=== PATIENT | female | born 1965 | race Caucasian/White ===

== ENCOUNTER 2019-11-03 13:16 | Emergency (ER) | payer OTHER ==
[~2019-11-03] VITALS: Ht 172.7 cm; Wt 54.4 kg
[~2019-11-03 13:16] MED LIST: LAMI; VIMPAT
[2019-11-03] MEDS ORDERED: LAMICTAL200 M1 (13:41)
[2019-11-03] MEDS ORDERED: LAMICTAL100 MG (13:42)
[2019-11-03] MEDS ORDERED: FORTAMET500 MG (13:43)
[2019-11-03] MEDS ORDERED: COZAAR25 MG (13:43)
[2019-11-03] MEDS ORDERED: ATORVASTATIN CA10 MG (13:43)
[2019-11-03] MEDS ORDERED: LANTUS SOL100 UNIT/1 (13:43)
[2019-11-03] MEDS ORDERED: GLIPIZIDE XL10 MG (13:44)
== END 2019-11-03 21:45 | disposition home or self-care (01) ==
LOC: ER 13:16
DX: T21.27XA Burn of second degree of female genital region, initial encounter (principal); T24.211A Burn of second degree of right thigh, initial encounter; T24.212A Burn of second degree of left thigh, initial encounter; X12.XXXA Contact with other hot fluids, initial encounter; Y93.89 Activity, other specified; Y92.89 Other specified places as the place of occurrence of the external cause; Y99.8 Other external cause status

== ENCOUNTER 2020-05-26 13:30 | Emergency (ER) | payer OTHER ==
[~2020-05-26] VITALS: Ht 170.2 cm; Wt 55.8 kg
[~2020-05-26 13:30] MED LIST changes: +ATORVASTATIN CA10 MG; +COZAAR25 MG; +FORTAMET500 MG; +GLIPIZIDE XL10 MG; +LAMICTAL100 MG; +LAMICTAL200 M1; +LANTUS SOL100 UNIT/1
== END 2020-05-26 18:39 | disposition home or self-care (01) ==
LOC: ER 13:30
DX: S01.82XA Laceration with foreign body of other part of head, initial encounter (principal); W18.39XA Other fall on same level, initial encounter; Y93.89 Activity, other specified; Y92.098 Other place in other non-institutional residence as the place of occurrence of the external cause; Y99.8 Other external cause status

== ENCOUNTER 2020-06-02 06:34 | Emergency (ER) | payer OTHER ==
[~2020-06-02] VITALS: Ht 170.2 cm; Wt 56.2 kg
== END 2020-06-02 08:05 | disposition home or self-care (01) ==
LOC: ER 06:34
DX: Z48.02 Encounter for removal of sutures (principal)

== ENCOUNTER 2021-04-14 09:13 | Emergency (ER) | payer OTHER ==
[~2021-04-14] VITALS: Ht 170.2 cm; Wt 59.0 kg
== END 2021-04-14 15:11 ==
LOC: ER 09:13
DX: L03.012 Cellulitis of left finger (principal)

== ENCOUNTER 2021-08-20 11:37 | Emergency (ER) | payer OTHER ==
[~2021-08-20] VITALS: Ht 170.2 cm; Wt 59.0 kg
== END 2021-08-20 15:48 | disposition home or self-care (01) ==
LOC: ER 11:37
DX: S00.83XA Contusion of other part of head, initial encounter (principal); X58.XXXA Exposure to other specified factors, initial encounter; Y92.9 Unspecified place or not applicable; E11.9 Type 2 diabetes mellitus without complications; Z79.84 Long term (current) use of oral hypoglycemic drugs; Z88.6 Allergy status to analgesic agent; I10 Essential (primary) hypertension

== ENCOUNTER 2022-04-20 10:46 | Emergency (ER) | payer OTHER ==
[~2022-04-20] VITALS: Ht 170.2 cm; Wt 56.7 kg
[2022-04-20] MEDS ORDERED: JARDIANCE10 MG PO (11:29)
[2022-04-20] MEDS ORDERED: HUMULIN 70100 UNIT/2 (11:29)
== END 2022-04-20 14:40 ==
LOC: ER 10:46
DX: T21.21XA Burn of second degree of chest wall, initial encounter (principal); X10.0XXA Contact with hot drinks, initial encounter; Y93.89 Activity, other specified; Y92.89 Other specified places as the place of occurrence of the external cause; Y99.9 Unspecified external cause status; E11.9 Type 2 diabetes mellitus without complications; Z79.4 Long term (current) use of insulin; Z79.84 Long term (current) use of oral hypoglycemic drugs; I10 Essential (primary) hypertension; Z88.6 Allergy status to analgesic agent

== ENCOUNTER 2022-08-19 10:15 | Emergency (ER) | payer OTHER ==
[~2022-08-19] VITALS: Ht 170.2 cm; Wt 54.0 kg
[~2022-08-19 10:15] MED LIST changes: +HUMULIN 70100 UNIT/2; +JARDIANCE10 MG PO
[2022-08-19] MEDS ORDERED: COZAAR25 MG PO (10:58)
[2022-08-19] MEDS ORDERED: CHILDREN'S ASPI81 MG PO (11:00)
== END 2022-08-19 16:09 | disposition home or self-care (01) ==
LOC: ER 10:15
DX: M54.2 Cervicalgia (principal); S13.9XXA Sprain of joints and ligaments of unspecified parts of neck, initial encounter; W19.XXXA Unspecified fall, initial encounter; Y93.9 Activity, unspecified; Y92.9 Unspecified place or not applicable; Y99.9 Unspecified external cause status

== ENCOUNTER 2023-04-13 10:15 | Emergency (ER) | payer OTHER ==
[~2023-04-13] VITALS: Ht 170.2 cm; Wt 52.2 kg
[~2023-04-13 10:15] MED LIST changes: +CHILDREN'S ASPI81 MG PO; +COZAAR25 MG PO
== END 2023-04-13 14:35 | disposition home or self-care (01) ==
LOC: ER 10:15
DX: S92.524A Nondisplaced fracture of middle phalanx of right lesser toe(s), initial encounter for closed fracture (principal); X58.XXXA Exposure to other specified factors, initial encounter; Y93.89 Activity, other specified; Y92.013 Bedroom of single-family (private) house as the place of occurrence of the external cause; Y99.9 Unspecified external cause status; Z88.8 Allergy status to other drugs, medicaments and biological substances; E11.9 Type 2 diabetes mellitus without complications; Z79.4 Long term (current) use of insulin; I10 Essential (primary) hypertension; R56.9 Unspecified convulsions

== ENCOUNTER 2023-09-11 11:52 | Emergency (ER) | payer OTHER ==
[~2023-09-11] VITALS: Ht 170.2 cm; Wt 52.2 kg
[2023-09-11 13:58] LABS: HEMATOCRIT 35.7 % (36.0-45.00); HEMOGLOBIN 12.5 g/dL (12.0-15.00); MEAN CELL VOLUME 91.5 fL (80.00-100.00); MEAN CORPUSCULAR HEMOGLOBIN 31.9 pg (27.00-32.0); MEAN CORPUSCULAR HGB CONC 34.9 g/dl (32.0-36.0); PLATELET COUNT 389 K/uL (150-450); RED CELL DISTRIBUTION WIDTH 13.4 % (11.5-14.5)
[2023-09-11 14:09] LABS: CALCIUM 9.5 mg/dL (8.5-10.1); CREATININE SERUM 0.73 mg/dL (0.55-1.02); GFR 82.47; POTASSIUM 3.59 mEq/L (3.5-5.1)
== END 2023-09-11 16:34 | disposition home or self-care (01) ==
LOC: ER 11:53
PROVIDERS: Emergency Medicine
DX: G40.909 Epilepsy, unspecified, not intractable, without status epilepticus (principal); Z88.8 Allergy status to other drugs, medicaments and biological substances; E11.9 Type 2 diabetes mellitus without complications; Z79.84 Long term (current) use of oral hypoglycemic drugs